=== PATIENT | female | born 1935 | race Caucasian/White ===

== ENCOUNTER 2021-11-30 09:05 | Observation (INO) ==
--- NOTE | 2021-11-30 09:44 | DR.GENAD ---
HPI Time Seen Time Seen by Provider: 11/30/21 09:37 PCP Primary Care Physician: KARLA JAMES Complaint/Symptoms Chief Complaint Doctors Comments: VAGINAL BLEEDING NOTED THIS AM. WHEN SHE URINATED, BLOOD IN URINE ALSO. Chief Complaint:: PT REPORTS THIS AM VOIDING AND SHE NOTED BRIGHT RED BLOOD IN HER UA AND PASSING A CLOT, ( PT DENIES ANY PAIN OR TRAUMA ). COVID-19 Coronavirus risk:travel/contact w/high risk person: No Has patient experienced Coronavirus symptoms: No Nurses notes reviewed Nurses Notes Review: Yes Source History Provided: Patient Mode of Arrival Mode of Arrival: Ambulatory Timing Onset of Chief Complaint: 11/30/21 Came on: Suddenly Duration Duration: Constant Duration: Days Modifying Factors Worsens:: NOTHING Improves:: NOTHING Other History Other History: HTN, HYPOTHYROIDISM PMH PMH Past Medical History: Yes Past Medical History: Dyslipidemia, Hypertension and Hypothyroidism Past Medical History Comment: TREMORS Past Surgical History: Yes Surgical History: Past Surgical History Comment: CATARACTS , Family History History of Family Medical Conditions: No Social History Does patient currently use any type of tobacco product: No Have you used tobacco products in the last 12 months: No Type of Tobacco Use: None Does any household member use tobacco: No Alcohol Use: None Do you use any recreational Drugs:: No Lives With: Family Lives Where: Home Travel Risk Coronavirus risk:travel/contact w/high risk person: No Has patient experienced Coronavirus symptoms: No Infectious screening In the last 2 months have you had wt loss of >10#?: NO Have you had fever, night sweats or hemotysis?: No Have you traveled outside the country in the last 6 months?: No Isolation: Standard ROS Review of Systems Constitutional: No Symptoms Reported and See HPI; negative Fever, Weakness and Fatigue Eyes: No Symptoms Reported and See HPI ENTM: No Symptoms Reported and See HPI; negative Nose Discharge and Nose Congestion Respiratoy: No Symptoms Reported and See HPI; negative Moist Cough, Short of Breath and Wheezing Cardiovascular: No Symptoms Reported and See HPI; negative Chest Pain Gastrointestinal/Abdominal: No Symptoms Reported and See HPI; negative Abdominal Pain, Diarrhea, Nausea and Vomiting Genitourinary: See HPI and Bleeding (VAGINAL BLEEDING, BLOOD IN URINE.) Neurological: See HPI and Tremors (CHRONIC.); negative Headache, Weakness and Dizziness Musculoskeletal: No Symptoms Reported and See HPI; negative Back Pain Integumentary: No Symptoms Reported and See HPI Hematologic/Lymphatic: No Symptoms Reported and See HPI; negative Easy Bruising Endocrine: No Symptoms Reported and See HPI; negative Increased Thirst and Increased Urine Psychiatric: No Symptoms Reported and See HPI All Other Systems: Reviewed and Negative PE Vital Signs Vitals: Temperature 97.0 F Pulse Rate 81 Respiratory Rate 22 Blood Pressure [Left Arm] 173/80 Blood Pressure 182/89 O2 Sat by Pulse Oximetry 97 General Limitations: No Limitations General Appearance: Alert and In No Apparent Distress Head Head Exam: Normal Inspection and Atraumatic Eyes Eye exam: Normal Appearance; negative Scleral Icterus and Conjunctival Injection ENT ENT Exam: Normal Exam, Normal Oropharynx, Normal External Ear Exam and TM's Normal Bilaterally External Ear Exam: Normal External Inspection; negative Mastoid Tenderness TM/Canal Exam: Bilateral: Normal Nose Exam: Normal Nose Exam Mouth Exam: Normal Inspection; negative Lip Swelling and Tongue Swelling Throat Exam: Normal Inspection; negative Tonsillar Erythema, Tonsillomegaly and Tonsillar Exudate Neck Neck Exam: Normal Inspection and Trachea Midline; negative Tenderness Chest Chest Inspection: Normal Inspection and Symmetric Chest Wall Rise; negative Tenderness Respiratory Respiratory Exam: Normal Lung Sounds Bilat; negative Accessory Muscle Use, Chest Wall Tenderness and Respiratory Distress Respiratory Exam: Bilateral: Rhonchi and Lower: Rhonchi Cardiovascular Cardiovascular Exam: Regular Rate, Normal Rhythm and Normal Heart Sounds; negative Systolic Murmur and Diastolic Murmur Abdominal Exam Abdominal Exam: Normal Inspection, Normal Bowel Sounds and Soft; negative Tenderness Extremities Extremities Exam: Normal Inspection and Normal Capillary Refill Back Back Exam: Normal Inspection; negative (R) CVA Tenderness and (L) CVA Tenderness Neurologic Neurological Exam: Alert and Oriented X3; negative Motor Sensory Deficit Psychiatric Psychiatric Exam: Normal Affect and Normal Mood Skin Skin Exam: Warm, Dry, Intact and Normal Color MDM Additional Information Additional Information Obtained From: Family and PCP Differential Diagnosis Differential Diagnosis: VAGINAL BLEEDING, UTI, KIDNEY STONE, BLOOD IN URINE COURSE Treatment Treatment: SEE ORDERS DONE WHILE PATIENT WAS IN ER. LABS AND US REPORT DISCUSSED WITH PATIENT. SHE WILL BE ADMITTED TO HOSPITAL Consultation Consultation Comments: DISCUSSED PATIENT WITH DR. ACOSTA. HE WILL ADMIT PATIENT. [facility] Labs Reviewed Laboratory Results Reviewed?: Yes Result Diagrams: 12/01/21 05:24 12/01/21 05:24 Laboratory: 11/30/21 10:14 Urine,Clean Catch Urine Culture - Final Escherichia Coli WBC 11.1 X10^3/uL (3.6-10.0) H 11/30/21 09:49 RBC 4.98 X10^6/uL (3.5-5.4) 11/30/21 09:49 Hgb 15.1 g/dL (12.0-16.0) 11/30/21 09:49 Hct 44.0 % (36.0-47.0) 11/30/21 09:49 MCV 88.3 fL (80.0-100.0) 11/30/21 09:49 MCH 30.2 pg (27.0-34.0) 11/30/21 09:49 MCHC 34.2 g/dL (33.0-35.0) 11/30/21 09:49 RDW 14.6 % (11.6-16.5) 11/30/21 09:49 Plt Count 310 X10^3/uL (150.0-450.0) 11/30/21 09:49 MPV 7.8 fL (7.4-11.0) 11/30/21 09:49 Neut % (Auto) 82.6 % (42.0-75.0) H 11/30/21 09:49 Lymph % (Auto) 9.1 % (21.0-51.0) L 11/30/21 09:49 [place] % (Auto) 6.8 % (0.0-13.0) 11/30/21 09:49 Eos % (Auto) 0.8 % (0.9-2.9) L 11/30/21 09:49 Baso % (Auto) 0.7 % (0.2-1.0) 11/30/21 09:49 Neut # (Auto) 9.1 x10^3/uL (2.2-4.8) H 11/30/21 09:49 Lymph # (Auto) 1.0 X10^3/uL (1.3-2.9) L 11/30/21 09:49 [place] # (Auto) 0.8 x10^3/uL (0.3-0.8) 11/30/21 09:49 Eos # (Auto) 0.1 x10^3/uL (0.0-0.2) 11/30/21 09:49 Baso # (Auto) 0.1 X10^3/uL (0.0-0.1) 11/30/21 09:49 Absolute Nucleated RBC 0.0 /100WBC 11/30/21 09:49 PT 14.0 SECONDS (11.8-14.3) 11/30/21 09:49 INR Target Range - 11/30/21 09:49 INR 1.12 (0.8-1.3) 11/30/21 09:49 Sodium 141 mmol/L (136-145) 11/30/21 09:49 Corrected Sodium TNP 11/30/21 09:49 Potassium 3.7 mmol/L (3.5-5.1) 11/30/21 09:49 Chloride 103 mmol/L (98-107) 11/30/21 09:49 Carbon Dioxide 30.7 mmol/L (21-32) 11/30/21 09:49 BUN 19 mg/dL (7-18) H 11/30/21 09:49 Creatinine 1.14 mg/dL (0.55-1.02) H 11/30/21 09:49 Est GFR (MDRD) Af Amer 58 (>60) L 11/30/21 09:49 Est GFR (MDRD) Non-Af 48 (>60) L 11/30/21 09:49 Glucose 104 mg/dL (65-99) H 11/30/21 09:49 Calcium 9.3 mg/dL (8.5-10.1) 11/30/21 09:49 Corrected Calcium TNP 11/30/21 09:49 Total Bilirubin 0.50 mg/dL (0.2-1.0) 11/30/21 09:49 AST 26 Units/L (15-37) 11/30/21 09:49 ALT 32 Units/L (12-78) 11/30/21 09:49 Alkaline Phosphatase 87 Units/L (46-116) 11/30/21 09:49 Total Protein 7.1 g/dL (6.4-8.2) 11/30/21 09:49 Albumin 3.6 g/dL (3.4-5.0) 11/30/21 09:49 Globulin 3.5 g/dL (2.5-4.5) 11/30/21 09:49 Albumin/Globulin Ratio 1.0 Ratio (1.1-2.1) L 11/30/21 09:49 Specimen Type Clean catch urine 11/30/21 10:14 Urine Color Bloody (YELLOW) 11/30/21 10:14 Urine Appearance Cloudy (CLEAR) 11/30/21 10:14 Urine pH 6.5 (5.0 - 8.0) 11/30/21 10:14 Ur Specific [place] 1.020 (1.000-1.030) 11/30/21 10:14 Urine Protein 4+ (NEGATIVE) 11/30/21 10:14 Urine Glucose (UA) Negative (NEGATIVE) 11/30/21 10:14 Urine Ketones 1+ (NEGATIVE) 11/30/21 10:14 Urine Blood 5+ (NEGATIVE) 11/30/21 10:14 Urine Nitrite Negative (NEGATIVE) 11/30/21 10:14 Urine Bilirubin Negative (NEGATIVE) 11/30/21 10:14 Urine Urobilinogen Normal (NORMAL) 11/30/21 10:14 Ur Leukocyte Esterase Negative (NEGATIVE) 11/30/21 10:14 Urine RBC Tntc /HPF (0-3) A 11/30/21 10:14 Urine WBC 10-20 /HPF (0-5) A 11/30/21 10:14 Ur Squamous Epith Cells Few /HPF (NEGATIVE) 11/30/21 10:14 Urine Bacteria Trace /HPF (NEGATIVE) 11/30/21 10:14 Urine Mucus Few /HPF (NEGATIVE) 11/30/21 10:14 Ur Culture Indicated? Yes/culture set up 11/30/21 10:14 SARS-CoV-2 (PCR) Negative (NEGATIVE) 11/30/21 12:05 XRAY XRAY Interpreted by: Radiologist (REPORT NOTED FOR PELVIC US.) and Self Opioid Opioid Risk Tool Age (August box if 16-45): No History of Preadolescent Sexual Abuse: No Total: 0 Total Score Risk Category: Low Risk Copyright: Franklyn KHANNA predicting aberrant behaviors Diagnosis Discharge Problem: Abnormal vaginal bleeding UTI (urinary tract infection) Qualifiers: Urinary tract infection type: site unspecified Hematuria presence: with hematuria Qualified Code(s): N39.0 - Urinary tract infection, site not specified Hematuria Qualifiers: Hematuria type: unspecified type Qualified Code(s): R31.9 - Hematuria, unspecified Hypertension Qualifiers: Hypertension type: primary hypertension Qualified Code(s): I10 - Essential (primary) hypertension Instructions Instructions: Fall Prevention in the Home, Adult, Wjyq-tl-Prjo Antibiotic Medicine, Adult, [id number] Urinary Tract Infection, Adult, Vfai-pm-Ehej Hypertension, Adult, [id number] Forms: Precautions for COVID19 [facility] Patient Portal Social Distancing
[2021-11-30 09:59] LABS: BASOPHILS # (AUTO) 0.1 X10^3/uL (0.0-0.1); BASOPHILS % (AUTO) 0.7 % (0.2-1.0); EOSINOPHILS # (AUTO) 0.1 x10^3/uL (0.0-0.2); EOSINOPHILS % (AUTO) 0.8 % (0.9-2.9); HEMOGLOBIN 15.1 g/dL (12.0-16.0); LYMPHOCYTES % (AUTO) 9.1 % (21.0-51.0); MEAN CORPUSCULAR HEMOGLOBIN 30.2 pg (27.0-34.0); MEAN CORPUSCULAR HGB CONC 34.2 g/dL (33.0-35.0); MEAN CORPUSCULAR VOLUME 88.3 fL (80.0-100.0); MEAN PLATELET VOLUME 7.8 fL (7.4-11.0); MONOCYTES # (AUTO) 0.8 x10^3/uL (0.3-0.8); MONOCYTES % (AUTO) 6.8 % (0.0-13.0); NEUTROPHILS # (AUTO) 9.1 x10^3/uL (2.2-4.8); NEUTROPHILS % (AUTO) 82.6 % (42.0-75.0); RED BLOOD COUNT 4.98 X10^6/uL (3.5-5.4); RED CELL DISTRIBUTION WIDTH 14.6 % (11.6-16.5); WHITE BLOOD COUNT 11.1 X10^3/uL (3.6-10.0)
[2021-11-30 10:35] LABS: BILIRUBIN,URINE NEGATIVE (NEGATIVE); BLOOD/HEMOGLOBIN,URINE 5+ (NEGATIVE); GLUCOSE, URINE NEGATIVE (NEGATIVE); KETONES,URINE 1+ (NEGATIVE); LEUKOCYTE ESTERASE ,URINE NEGATIVE (NEGATIVE); NITRITES,URINE NEGATIVE (NEGATIVE); PH,URINE 6.5 (5.0 - 8.0); PROTEIN,URINE 4+ (NEGATIVE); UROBILINOGEN,URINE NORMAL (NORMAL)
[2021-11-30 10:44] LABS: APPEARANCE,URINE CLOUDY (CLEAR); COLOR,URINE BLOODY (YELLOW)
[2021-11-30 10:45] LABS: BACTERIA,URINE TRACE /HPF (NEGATIVE); RBC,URINE TNTC /HPF (0-3); SQUAMOUS EPITHELIAL CELL,UR FEW /HPF (NEGATIVE)
--- NOTE | 2021-11-30 11:39 | US ---
HISTORYabnormal bleeding onset this amSTUDYTRANSVAGINALCOMPARISONNone. .br.br.br pelvis were obtained.FINDINGSThe uterus measures 2.9 x 1.4 x 2.3 cm. Nonspecific punctate calcifications are seen within the uterus. No obvious fibroid or suspicious mass.. The endometrial stripe is normal in size measuring 2 mm. The right and left adnexa are unremarkable. The ovaries are not well seen. No adnexal mass or free fluid can be identified.IMPRESSIONOne. Nonspecific punctate calcifications within the uterus. No obvious fibroid are suspicious mass.Two. The ovaries are not well seen.Three. Remaining exam is unremarkable.Electronically signed by: WILFREDO ARANDA (Nov 30, 2021 11:38:37)
[2021-11-30] MEDS ORDERED: LEVAQUIN PREMIX IV 250 MG 250 MG/50 ML BAG IV ONE ×2 (12:42→12:53)
[2021-11-30] MEDS ORDERED: NS 1,000 ML IV 1,000 ML ONE (12:53)
[2021-11-30] MEDS: NS 1,000 ML IV 1,000 ML IV SCH (13:04)
[2021-11-30 13:10] LABS: ALANINE AMINOTRANSFERASE 32 Units/L (12-78); ALBUMIN 3.6 g/dL (3.4-5.0); ALKALINE PHOSPHATASE 87 Units/L (46-116); ASPARTATE AMINO TRANSFERASE 26 Units/L (15-37); BLOOD UREA NITROGEN 19 mg/dL (7-18); CALCIUM 9.3 mg/dL (8.5-10.1); CARBON DIOXIDE 30.7 mmol/L (21-32); CHLORIDE 103 mmol/L (98-107); CREATININE 1.14 mg/dL (0.55-1.02); SODIUM 141 mmol/L (136-145); TOTAL PROTEIN 7.1 g/dL (6.4-8.2); eGFR NON BLACK RACES 48 (>60)
[2021-11-30] MEDS ORDERED: ZESTORETIC 10/ 12.5MG PO ONE (16:50)
[2021-12-01 05:47] LABS: BASOPHILS % (AUTO) 0.5 % (0.2-1.0); EOSINOPHILS # (AUTO) 0.1 x10^3/uL (0.0-0.2); HEMATOCRIT 37.7 % (36.0-47.0); LYMPHOCYTES # (AUTO) 0.9 X10^3/uL (1.3-2.9); LYMPHOCYTES % (AUTO) 13.4 % (21.0-51.0); MEAN CORPUSCULAR HEMOGLOBIN 29.7 pg (27.0-34.0); MEAN CORPUSCULAR HGB CONC 33.9 g/dL (33.0-35.0); MEAN CORPUSCULAR VOLUME 87.6 fL (80.0-100.0); MEAN PLATELET VOLUME 7.9 fL (7.4-11.0); MONOCYTES # (AUTO) 0.6 x10^3/uL (0.3-0.8); MONOCYTES % (AUTO) 9.2 % (0.0-13.0); NEUTROPHILS # (AUTO) 4.9 x10^3/uL (2.2-4.8); NEUTROPHILS % (AUTO) 75.9 % (42.0-75.0); RED CELL DISTRIBUTION WIDTH 14.7 % (11.6-16.5); WHITE BLOOD COUNT 6.4 X10^3/uL (3.6-10.0)
[2021-12-01 05:53] LABS: HEMOGLOBIN 12.8 g/dL (12.0-16.0)
[2021-12-01 06:03] LABS: ALANINE AMINOTRANSFERASE 39 Units/L (12-78); ALBUMIN 2.7 g/dL (3.4-5.0); ALKALINE PHOSPHATASE 73 Units/L (46-116); ASPARTATE AMINO TRANSFERASE 32 Units/L (15-37); BLOOD UREA NITROGEN 17 mg/dL (7-18); CALCIUM 8.1 mg/dL (8.5-10.1); CARBON DIOXIDE 29.6 mmol/L (21-32); CHLORIDE 107 mmol/L (98-107); COR CA(FOR HYPOALB) 9.1 mg/dL (8.5-10.1); CREATININE 0.94 mg/dL (0.55-1.02); SODIUM 143 mmol/L (136-145); TOTAL PROTEIN 5.6 g/dL (6.4-8.2); eGFR NON BLACK RACES > 60 (>60)
[2021-12-01] MEDS ORDERED: KLOR-CON PO PRN (06:55)
[2021-12-01] MEDS ORDERED: POTASSIUM CHL 40 MEQ/NS 0.45% 500 ML IV PRN (06:55)
[2021-12-01] MEDS ORDERED: POTASSIUM CHL 60 MEQ/NS 0.45% 500 ML IV PRN (06:55)
[2021-12-01] MEDS ORDERED: POTASSIUM CHLORIDE LIQ 20 MEQ UDC PO PRN (06:55)
[2021-12-01] MEDS ORDERED: K-DUR TAB 20 MEQ PO PRN (06:55)
[2021-12-01] MEDS ORDERED: MICRO K EXTEN CAP 10 MEQ PO PRN (06:55)
[2021-12-01] MEDS ORDERED: K-RIDER 10 MEQ/NS 100 ML 10 MEQ/100 ML BAG IV PRN (06:55)
[2021-12-01 08:02] VITALS: BP 160/74
[2021-12-01] MEDS ORDERED: ZOCOR TAB 20 MG PO SCH (09:00)
[2021-12-01] MEDS ORDERED: LEVAQUIN PREMIX IV 500 MG 500 MG/100 ML BAG IV SCH (09:00)
[2021-12-01] MEDS ORDERED: ZESTORETIC 10/ 12.5MG PO SCH (09:00)
[2021-12-01] MEDS ORDERED: INDERAL TAB 10 MG PO SCH (09:00)
[2021-12-01] MEDS ORDERED: SYNTHROID 25 mcg TAB PO SCH (09:00)
[2021-12-01] MEDS: NS 1,000 ML IV 1,000 ML IV SCH (09:10)
[2021-12-01 09:25] VITALS: BMI 21.2
--- NOTE | 2021-12-15 12:36 | DR.CARTERS ---
Short Stay Summary - Admission Date Date of Admission: 11/30/21 - Discharge Date Discharge Date: 12/01/21 - Admission Diagnoses (1) UTI (urinary tract infection) Status: Acute (2) Hematuria Status: Acute - Hospital Course Hospital Course: IS A 86 YEAR OLD PATIENT OF OURS. SHE PRESENTED TO THE ER WITH COMPLAINTS OF PASSING BRIGHT RED BLOOD IN URINE. SYMPTOMS ONSET THE MORNING OF PRESENTATION. SHE DENIED RECENT PAIN OR TRAUMA. SHE ADMITTED TO MILD SUPRAPUBIC PAIN AND NAUSEA AT TIMES. HER PMH INCLUDES: DYSLIPIDEMIA, HTN, HYPOTHYROIDISM, TREMORS, , CATARACTS. ER PHYSICIAN REPORTED THAT THERE DID NOT APPEAR TO BE ANY ACTIVE BLEEDING FROM VAGINA. ON ARRIVAL, VITALS WERE 97.0-81-22-97%-182/89. LABS WERE OBTAINED. WBC 11.1, RBC 4.98, HGB 15.1, HCT 44.0, SODIUM 141, POTASSIUM 3.7, CHLORIDE 103, BUN 19, CREATININE 1.14, GLUCOSE 104, CALCIUM 9.3, AST 26, ALT 32, ALK PHOS 87, TOTAL PROTEIN 7.1, ALBUMIN 3.6. URINALYSIS WAS OBTAINED AND REVEALED: WBC 10-20, RBC TNTC, BLOOD 5+. A URINE CULTURE WAS SET UP. A VAGINAL ULTRASOUND WAS OBTAINED AND REVEALED: 1) Nonspecific punctate calcifications within the uterus. No obvious fibroid are suspicious mass. 2) The ovaries are not well seen. 3) Remaining exam is unremarkable. IN THE ER, SHE WAS GIVEN LEVAQUIN 250MG IV X 1. SHE WAS ADMITTED TO THE HOSPITAL FOR OBSERVATION STATUS FURTHER EVALUATION AND TREATMENT OF UTI, GROSS HEMATURIA. SHE WAS STARTED ON NORMAL SALINE AT KVO, LEVAQUIN 500MG IV DAILY, THE POTASSIUM PROTOCOL, AND HER MEDICATIONS WERE RESUMED. OTHERWISE, WE PLANNED TO FOLLOW-UP WITH AM LABS AND CONTINUE TO MONITOR. ON THE MORNING FOLLOWING ADMISSION, PATIENT IS ALERT AND ORIENTED, LYING IN BED ON MORNING ROUNDS. SHE DENIED ABDOMINAL PAIN OR NAUSEA TODAY. SHE DENIES SEEING ANY BRIGHT RED BLOOD IN URINE SINCE ADMISSION. HER VITALS THIS MORNING ARE: 98.1-82-18-96%-160/74. LABS WERE OBTAINED. WBC 6.4, HGB 12.8, HCT 37.7, SODIUM 143, POTASSIUM 3.6, BUN 17, CREATININE 0.94, GLUCOSE 108, CALCIUM 8.1, TOTAL PROTEIN 5.6, ALBUMIN 2.7. URINE CULTURE PENDING. WE PLANNED FOR DISCHARGE. INSTRUCTIONS FOR MEDICATIONS AND FOLLOW-UP WERE DISCUSSED WITH PATIENT. SHE VERBALIZED UNDERSTANDING OF ALL ORDERS. SHE WAS GIVEN AN RX FOR LEVOFLOXACIN 500MG PO DAILY X 10 DAYS AND INSTRUCTED TO CONTINUE HER CURRENT MEDICATIONS. SHE IS ADVISED TO FOLLOW-UP IN THE OFFICE ON 12/08/21 AT 2:10PM. SHE IS DISCHARGED HOME WITH FAMILY IN STABLE CONDITION. TIME SPENT ON CLINICAL ASSESSMENT, REVIEWING LABS AND IMAGING, DECISION MAKING, DISCHARGE INSTRUCTIONS, PREPARING DISCHARGE PAPERS, AND DOCUMENTATION GREATER THAN 75 MINUTES. - Discharge Medications Discharge Medications: Home Medication List levothyroxine [Synthroid] 25 mcg PO DAILY 11/30/21 [History] lisinopril-hydrochlorothiazide 1 tab PO DAILY 11/30/21 [History] propranolol 20 mg PO DAILY 11/30/21 [History] simvastatin 20 mg PO DAILY 11/30/21 [History] levofloxacin 500 mg PO DAILY #10 tab 12/01/21 [Rx] Prescriptions: levofloxacin Monroe Joseph - Discharge Plan Disposition: 01 HOME, SELF-CARE Condition: Stable Prescriptions: levofloxacin 500 mg PO DAILY #10 tab - Follow up/Referrals Follow up/Referrals: Monroe Joseph [Primary Care Provider] - 12/08/21 2:10 pm - Instructions Instructions: Fall Prevention in the Home, Adult, Vwny-kj-Zype, Antibiotic Medicine, Adult, [id number]-[id number], Urinary Tract Infection, Adult, Chcz-or-Szts, Hypertension, Adult, [id number]-[id number] Additional Instructions: DIET TOLERATED. ACTIVITY TOLERATED. Forms: Precautions for [place] [id number], [facility], Patient Portal, Social Distancing
== END 2021-12-01 11:40 | disposition home or self-care (01) ==
LOC: MED/SURG 09:05 → ER 09:05 → MED/SURG 14:14
PROVIDERS: ADMIT Internal Medicine; ATTEND Internal Medicine
DX: E78.2 Mixed hyperlipidemia; I10 Essential (primary) hypertension; R10.30 Lower abdominal pain, unspecified; Z20.822 Contact with and (suspected) exposure to COVID-19; B96.29 Other Escherichia coli [E. coli] as the cause of diseases classified elsewhere; N30.01 Acute cystitis with hematuria; E03.8 Other specified hypothyroidism